=== PATIENT | male | born 1950 | race Caucasian/White ===

== ENCOUNTER → 2017-07-12 | Outpatient (CLI) | payer MEDICARE ==
[~2017-07-12] VITALS: Ht 177.8 cm; Wt 106.8 kg
[~2017-07-12] MED LIST: ASPIR 8181 MG PO; ASPIRIN325 PO; COZAAR 25 MG TA25 M1 PO; CRESTOR10 MG PO; PLAVIX 75 MG TA75 M1 PO
[2017-07-12 08:15] LABS: HEMATOCRIT 46.7 % (42.0-52.0); HEMOGLOBIN 16.1 gm/dL (14.0-18.0); MCH 31.2 pg (26.0-34.0); MCHC 34.4 g/dL (28.0-37.0); MCV 90.8 fL (80.0-100.0); RBC 5.15 mil/uL (4.50-6.00); RDW-CV 13.6 % (10.5-14.5); WBC 5.4 thou/uL (4.0-11.0)
[2017-07-12 08:24] LABS: ANION GAP 9 mmol/L (7-16); APTT 28.7 Seconds (25.0-31.3); BUN 16 mg/dL (7-18); CALCIUM 8.8 mg/dL (8.5-10.1); CHLORIDE 104 mmol/L (98-107); CO2 28 mmol/L (21-32); CREATININE 1.3 mg/dL (0.6-1.3); GLUCOSE 108 mg/dL (70-99); INR 1.1; POTASSIUM 3.8 mmol/L (3.5-5.1); PROTIME 10.8 Seconds (9.20-11.50); SODIUM 141 mmol/L (136-145)
[2017-07-12 08:30] LABS: CHOLESTEROL 151 mg/dL (<200); HDL CHOLESTEROL 48 mg/dL (>40); LDL CHOLESTEROL 87 mg/dL (<100); TC:HDL 3.1 Ratio (Not establshd); TRIGLYCERIDE 84 mg/dL (<150); VLDL 17 mg/dL (<40)
[2017-07-12 08:31] LABS: SERUM ASSESSMENT Clear
[2017-07-12 08:37] VITALS: BP 137/73
[2017-07-12 11:50] VITALS: BP 136/70
[2017-07-12 12:31] VITALS: BP 130/76
[2017-07-12 12:58] VITALS: BP 158/80
[2017-07-12 13:16] VITALS: BP 160/87
[2017-07-12 13:32] VITALS: BP 156/78
--- NOTE | 2017-07-12 13:45 | EKG ---
[place] [address] ELECTROCARDIOGRAM REPORT Name: REENA MERCADO Room: [facility]#: [id number] Admission: 07/12/17 Attend Phys: Apollo Myles MD Discharge: Date of : 46 Report #: [id number] THIS REPORT FOR: //name// [facility] Test Date: 2017-07-12 Test Time: 08:33:24 Pat Name: REENA MERCADO Department: Room: Gender: M Radio Interference Expert: : 1950 Requested By: Apollo Myles Order Number: [id number] Reading MD: Apollo Myles Measurements Intervals [place] Rate: 60 P: 44 HI: 204 QRS: 58 QRSD: 150 T: -11 QT: 538 QTc: 538 Interpretive Statements Sinus rhythm Right bundle branch block Inferior infarct, old Baseline wander in lead(s) V3 No previous ECG available for comparison Electronically Signed On 07-12-2017 13:45:34 VIDEO GAMES MECHANIC by Apollo Myles [email or web address] <ELECTRONICALLY SIGNED> By: Apollo Myles MD, [facility] 07/12/17 1345 2 2 Apollo Myles MD, [facility] /EPI
--- NOTE | 2017-07-12 15:22 | CON ---
[address] [address] CONSULTATION Name: ROGELIOREENA Iris Room: [facility]#: [id number] Admission: 07/12/17 Attend Phys: Apollo Myles MD Discharge: Date of : 46 Report #: [id number] THIS REPORT FOR: //name// CC: Deni Myles DATE OF SERVICE: 07/12/2017 PRIMARY CARE PHYSICIAN: Dr. Deni Woody. CHIEF COMPLAINT: Abnormal stress test, coronary artery disease. HISTORY OF PRESENT ILLNESS: The patient is a 67-year-old man who has a history of bypass surgery 10 years ago. He has a CARLTON to LAD, vein graft to diagonal ramus and ramus intermedius and vein graft to PDA. His stress test was abnormal. It had a large inferior defect and LV dysfunction. PAST MEDICAL HISTORY: Significant for bypass surgery in 2007, hypertension, and hyperlipidemia. MEDICATIONS: Include Crestor 10 mg daily, losartan 25 mg daily and aspirin 325 mg daily. SOCIAL HISTORY: He is a nonsmoker. FAMILY HISTORY: Positive for heart disease. REVIEW OF SYSTEMS: GASTROINTESTINAL: No abdominal pain, nausea. NEUROLOGIC: No slurred speech, numbness. GASTROINTESTINAL: No bleeding. SKIN: No bleeding or rashes. HEMATOLOGIC: No anemia or bleeding disorders. RENAL: No history of kidney failure. PHYSICAL EXAMINATION: VITAL SIGNS: Blood pressure is 130/70, sinus rhythm at 80, no apparent distress. Weight is 247 pounds. CARDIOVASCULAR: Regular. No murmur. LUNGS: Clear to auscultation. ABDOMEN: Soft, nontender. EXTREMITIES: No peripheral edema. SKIN: Warm and dry. ECG, sinus rhythm with right bundle-branch block. Small Q-waves in the inferior leads. [address] [address] CONSULTATION Name: REENA MERCADO Room: [facility]#: [id number] Admission: 07/12/17 Attend Phys: Apollo Myles MD Discharge: Date of : 46 Report #: [id number] IMPRESSION: 1. Coronary artery disease. 2. Abnormal stress test. 3. Status post bypass. 4. Hyperlipidemia. PLAN: After discussing risks and benefits, the patient elects to proceed with a cardiac catheterization. <ELECTRONICALLY SIGNED> By: Apollo Myles MD, FACC 07/12/17 1522 1142 [id number] Myles MD, FACC /nt
--- NOTE | 2017-07-14 14:00 | CARD ---
[address] [address] CARDIAC CATH REPORT Name: ROGELIOREENA Iris Room: [facility]#: [id number] Admission: 07/12/17 Attend Phys: Apollo Myles MD Discharge: Date of : 46 Report #: [id number] THIS REPORT FOR: //name// APPROVED REPORT Patient Details Patient Status: Out-Patient Room #: The patient is a 67 year-old male Event Personnel Apollo Myles Forest Scientist, Cristy Beck RN Dramatic Reader, Brooke Teran Monitor, Natalie Chavarria RTR Scrub Procedures Performed Art Access - R femoral artery* Left Heart Cath Coronaries, Bypass Grafts [id number] [facility] Hemostasis w/ Mynx Indication Stable angina , Positive stress test, Chest pain Risk Factors Dysplipidemia , Coronary Artery DiseaseHypertension Previous Procedures/Diagnoses Previous CABG Procedure Narrative The right femoral was infiltrated with 1% Lidocaine subcutaneous anesthesia. A [place] 6 FR sheath was inserted into the right femoral artery. Coronary angiography was performed using coronary diagnostic catheters. The right coronary system was accessed and visualized with a RCB 6fr catheter. The left coronary system was accessed and visualized with a JL 4 fr catheter. The left ventricle was accessed and visualized with a PC: Pig 6fr catheter. Left ventricular/Aortic Valve gradient assessed via catheter pullback. Left ventriculogram was performed in [place] projection. Pre-demployment femoral angiogram was performed . Closure device was deployed with a 6 Fr MynxGrip 6/7F. The patient tolerated the procedure well and there were no complications associated with the procedure. Intraoperative Conscious Sedation Sedation start time: 10:57 Case end Time: 11:26 Fentanyl 25 mcg Versed 2 [place] [address] CARDIAC CATH REPORT Name: REENA MERCADO Room: [facility]#: [id number] Admission: 07/12/17 Attend Phys: Apollo Myles MD Discharge: Date of : 46 Report #: [id number] Fluoro Time: 11 minutes Dose: DAP [id number] cGycm2 16.08 mGy Contrast Type and Amount: Visipaque 175 ml [place] Artery Percent Stenosis Grafts (Complete if Previous CABG=Yes: Percent Stenosis) subselective CARLTON to LAD tortuous but no stenosis, distal LAD small, diffuse disease SVG to Diag. x2 and OM has a distal 40-50% smoothe stenosis , SVG to RCA no disease, distal anas to PDA, PLB.Smaller vessels, with severe diffuse disease distal to anastomosis 50-80% Diagnostic Cath Left Main distal 30% LAD LAD is occluded at ostium Diagonal 1 fills with SVG Diagonal 2 fills with SVG Circumflex Proximal 50% OM1 Occluded Right Coronary Occluded proximally Left Ventriculography The left ventricle is mild to moderately dilated in size with decreased contractility. The left ventricular ejection fraction is estimated to be 45-50%. Left ventricular wall motion abnormalities are present. There is no mitral insufficiency. inferior hypokinesis Hemodynamics The aortic pressure is 134/68 mmHg with a mean of mmHg. The left ventricular pressure is 140/1 mmHg with a mean of mmHg. The left ventricular end diastolic pressure is 17 mmHg. There was no gradient across the aortic valve upon pullback. Pullback from the left ventricle to the aorta revealed no gradient across the aortic valve. Conclusion 1. Patent CARLTON to LAD, no disease 2. Patent SVG to OM and diag., moderate disease 4. Patent SVG to RCA PDA, PLB, no disease 5. Severe makah vessel disease 6. [place] [address] CARDIAC CATH REPORT Name: REENA MERCADO Room: [facility]#: [id number] Admission: 07/12/17 Attend Phys: Apollo Myles MD Discharge: Date of : 46 Report #: [id number] Recommendations Medical Therapy <ELECTRONICALLY SIGNED> By: Apollo Myles MD, [facility] 07/14/17 1400 1400 Carlos Myles MD, FACC /INF
== END | disposition home or self-care (01) ==
LOC: M.CL 07:40
PROVIDERS: Internal Medicine Cardiovascular Disease
DX: I25.10 Atherosclerotic heart disease of native coronary artery without angina pectoris (principal); I50.1 Left ventricular failure, unspecified; E78.5 Hyperlipidemia, unspecified; I10 Essential (primary) hypertension; Z95.1 Presence of aortocoronary bypass graft; Z79.82 Long term (current) use of aspirin; Z79.899 Other long term (current) drug therapy